=== PATIENT | male | born 1950 | race Caucasian/White ===

== ENCOUNTER → 2016-07-17 | Day surgery (SDC) | payer MEDICARE, OTHER | END | disposition home or self-care (01) | LOC: FAS 08:45 | DX: H26.9 Unspecified cataract (principal); I10 Essential (primary) hypertension; Z88.0 Allergy status to penicillin; Z88.5 Allergy status to narcotic agent; Z79.82 Long term (current) use of aspirin; Z79.899 Other long term (current) drug therapy; Z98.890 Other specified postprocedural states | CPT/HCPCS: V2632 ==

== ENCOUNTER 2021-06-27 16:31 | Emergency (ER) | payer MEDICARE, OTHER ==
[2021-06-27 17:16] LABS: BASOPHIL 0.7 % (0-2); EOSINOPHIL 0.2 % (0-7); HCT 39.4 % (42.0-52.0); HGB 13.7 g/dl (13.2-18.0); LYMPHOCYTE 10.8 % (15-48); MCH 31.6 pg (25.0-31.0); MCHC 34.8 g/dL (32.0-36.0); MONOCYTE 5.7 % (0-12); MPV 9.3 fL (6.0-9.5); NEUTROPHIL 82.3 % (41-80); NRBC 0; PLT 212 K/uL (150-400); RBC 4.33 M/uL (4.70-6.00); RDW 13.2 % (11.5-14.0); WBC 10.5 K/uL (4.0-10.5)
[2021-06-27 17:33] LABS: CREATININE 1.68 mg/dL (0.67-1.17); POTASSIUM 5.3 mmol/L (3.5-5.1)
[2021-06-27 17:34] LABS: ALBUMIN 3.5 g/dL (3.4-5.0); BILIRUBIN - TOTAL 0.5 mg/dL (0.2-1.0); GLOBULIN (CALCULATION) 3.6 g/dL; LACTIC ACID 1.3 mmol/L (0.4-1.9); TOTAL PROTEIN 7.1 g/dL (6.4-8.2)
[2021-06-27 17:55] LABS: BILIRUBIN NEGATIVE (NEGATIVE); BLOOD NEGATIVE Ery/uL (NEGATIVE); CLARITY CLEAR (CLEAR); COLOR YELLOW (YELLOW); GLUCOSE (U) NORMAL (NORMAL); LEUKOCYTES NEGATIVE Leu/uL (NEGATIVE); NITRITE NEGATIVE (NEGATIVE); PROTEIN NEGATIVE (NEGATIVE); UROBILINOGEN 0.2 mg/dL (0.2-1.0); pH 7.5 (5.0-9.0)
[2021-06-27] MEDS ORDERED: FLOMAX0.4 MG PO (18:42)
[2021-06-27] MEDS ORDERED: NORCO 5-325 TA1 EACH PO (18:48)
== END 2021-06-27 19:15 | disposition home or self-care (01) ==
LOC: FER 16:31
PROVIDERS: Physician Assistant
DX: N13.2 Hydronephrosis with renal and ureteral calculous obstruction (principal); I10 Essential (primary) hypertension; E78.5 Hyperlipidemia, unspecified; Z88.0 Allergy status to penicillin; Z88.5 Allergy status to narcotic agent; Z79.82 Long term (current) use of aspirin; Z79.899 Other long term (current) drug therapy
CPT/HCPCS: 36415; 80053; 81003; 83605; 84132; 85025; J2270; J2405; J7030